=== PATIENT | male | born 1975 | race Caucasian/White ===

== ENCOUNTER 2020-01-22 18:29 | Emergency (ER) | payer BC, SELFPAY ==
--- NOTE | ~2020-01-22 | XR_ITS ---
EXAMINATION: XR ankle LT min 3V, XR foot LT min 3V DATE: 01/22/2020 20:58 INDICATION: Swelling and erythema at the left ankle after being hit with a baseball. TECHNIQUE: 1. Anteroposterior, mortise, additional oblique and lateral view of the left ankle were obtained. 2. Dorsoplantar, two oblique and lateral views of the left foot were obtained. COMPARISON: None. FINDINGS: Alignment of the foot and ankle is normal. No fracture. 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 Large Achilles calca erich spur with a couple additional enthesopathic ossicles at the distal Achilles tendon. Diffuse soft tissue swelling about the ankle and visualized lower leg. Multiple round calcified phleboliths versu s heterotopic ossicles in the subcutaneous tissues predominantly along the anterior distal lower leg. No ankle joint effusion. IMPRESSION: 1. No acute osseous abnormality at the left foot or ankle. Reviewed, dictated and finalized at location A. IMPRESSION: 1. No acute osseous abnormality at the left foot or ankle.
[2020-01-22 19:12] VITALS: BP 132/75; PULSE 74; RESP 74; TEMP 36.7; O2SAT 99
[2020-01-22 22:22] VITALS: BP 126/64; PULSE 71; RESP 20; TEMP 36.7; O2SAT 95
[2020-01-22 23:31] VITALS: BP 139/81; PULSE 65; RESP 17; O2SAT 96
--- NOTE | 2020-01-22 23:31 | PC.NURSE ---
Pt walked out of ED w/ steady gait NAD.
== END 2020-01-22 23:31 | disposition left against medical advice (07) ==
PROVIDERS: Emergency Provider Emergency Medicine; PCP Family Medicine
DX: M79.89 Other specified soft tissue disorders (principal)
CPT/HCPCS: 73610; 73630; 99199

== ENCOUNTER 2020-01-23 06:21 | Emergency (ER) | payer BC, SELFPAY ==
--- NOTE | ~2020-01-23 | US_ITS ---
EXAMINATION: US venous doppler [facility] EXAM DATE: 01/23/2020 07:39 INDICATION: Left leg pain and swelling. TECHNIQUE: Multiple grayscale, color flow and Doppler images of the left lower extremity deep venous system were obtained and reviewed. There is no prior study for comparison. FINDINGS: The left common femoral, femoral and profunda veins demonstrate normal color flow, respirat ory variation, augmentation and compressibility. Compressibility, color flow confirmed within the le ft popliteal, posterior tibial, peroneal, and greater saphenous veins. IMPRESSION: 1. No left lower extremity deep venous thrombosis. Reviewed, dictated and finalized at location A.
[2020-01-23 06:24] VITALS: BP 127/72; PULSE 68; RESP 17; TEMP 36.5; O2SAT 100
--- NOTE | 2020-01-23 07:10 | PC.NURSE ---
ASSUMED CARE FOR PT AT THIS TIME FROM MANUEL BRUNSON.
--- NOTE | 2020-01-23 07:14 | ED.LOWEXIN ---
HPI - Extremity Injury (Lower) General Chief Complaint: Extremity Injury, Lower Stated Complaint: Leg swelling Time Seen by Provider: 01/23/20 07:13 History of Present Illness HPI Narrative: Struck on the left [place] with a softball. Had some pain and swelling at that time. Seemd to be getting better then returned and started getting worse a few days ago. Additionally developed redness. Started on bactrim by PCP. Symptoms continue to get worse. No fever, wound. Related Data Home Medications Medication Instructions Recorded Confirmed sulfamethoxazole-trimethoprim 800 - 1,600 tablet PO DAILY 01/23/20 01/23/20 Allergies Allergy/AdvReac Type Severity Reaction Status Date / Time No Known Allergies Allergy Mild Verified 01/23/20 06:42 Review of Systems Review of Systems: All systems reviewed & are unremarkable except as noted in HPI and below Constitutional: Constitutional: Denies fever(s) ENT: Denies sore throat Cardiovascular: Cardiovascular: Denies chest pain Respiratory: Respiratory: Denies dyspnea Gastrointestinal: Gastrointestinal: Denies abdominal pain and Denies nausea Musculoskeletal: Musculoskeletal: Denies back pain Neurologic: Denies weakness [facility] Past Medical History Medical History Cellulitis Surgical History Surgical History History of weight loss surgery Family History Family History Other Diabetes mellitus Family history of heart disease in male family member before age 55 Social History Social History Alcohol intake: current Exam Const: General: healthy appearing, no acute distress and alert Orientation/consciousness: patient oriented x3 HENMT: Head: normal to inspection Neck: Neck: normal visual inspection and no lymphadenopathy Resp: Effort & Inspection: normal respiratory effort Auscultation: clear to auscultation bilaterally, no rales, no rhonchi and no wheezes Cardio: Jugular venous distension: no JVD Rate: regular rate Rhythm: regular rhythm Heart sounds: no murmurs Other: 2 + DP pulses bilaterally Skin: Other: erythema and induration of the left ankle with large fluctuant area Neuro: General: patient oriented x3, moves all extremities and CN's II-XI intact bilaterally Speech: normal speech Gait exam (Neuro): Normal gait present Extrem: General: no edema Psych: Appearance: well kempt Affect: normal affect Course Vital Signs Vital signs: Vital Signs Temperature 36.5 C 01/23/20 06:24 Pulse Rate 68 01/23/20 06:24 Respiratory Rate 17 01/23/20 06:24 Blood Pressure 127/72 01/23/20 06:24 Pulse Oximetry 100 01/23/20 06:24 Temperature 36.5 C 01/23/20 06:24 Pulse Rate 78 01/23/20 09:16 Respiratory Rate 16 01/23/20 09:16 Blood Pressure 119/72 01/23/20 09:16 Pulse Oximetry 100 01/23/20 09:16 Procedures Abscess I/D lower extremity: Date of Incision: 01/23/20 Side (if applicable): left Local Anesthetic: lidocaine 1% and with epi Amount of anesthesia used (mL): 6 Technique: incised with #11 blade Amount of fluid expressed (mL): 8 Irrigation: Yes Packing used?: iodoform I&D Results: Pus MDM - Extremity Injury (Lower) MDM Narrative Medical decision making narrative: US negative for DVT Significant pus drained on I&D. I will have him finish the course of antibiotics Medical Records Attestation: I reviewed the patient's medical records. Lab Data Attestation: I reviewed the patient's lab results. Result diagrams: 01/23/20 07:04 01/23/20 07:04 Labs: Lab Results 01/23/20 01/23/20 01/23/20 Range/Units 07:04 07:04 07:04 WBC 10.1 H (4.5-10.0) K/mm3 RBC 5.53 (4.6-6.20) M/mm3 Hgb 16.3 (14.0-18
[2020-01-23 07:23] LABS: Basophils Absolute Auto 0.1 K/mm3 (0.0-0.1); Basophils Percent Auto 0.8 % (0.2-1.2); Eosinophils Absolute Auto 0.1 K/mm3 (0-0.3); Eosinophils Percent Auto 1.4 % (0-4.4); Hematocrit 49.2 % (42.0-52.0); Hemoglobin 16.3 g/dL (14.0-18.0); Immature Granulocyte Absolute 0.15 K/mm3 (0.00-0.031); Immature Granulocyte Percent A 1.5 % (0-0.5); Lymphocytes Absolute Auto 0.59 K/mm3 (0.9-3.2); Lymphocytes Percent Auto 5.9 % (18.3-44.2); Mean Corpuscular HGB Conc 33.1 g/dl (32-36); Mean Corpuscular Hemoglobin 29.5 pg (26-34); Mean Platelet Volume 10.5 fl (7.4-10.4); Monocytes Absolute Auto 1.2 K/mm3 (0.1-0.6); Monocytes Percent Auto 11.6 % (2.6-8.5); Neutrophils Absolute Auto 7.9 K/mm3 (1.3-6.7); Neutrophils Percent Auto 78.8 % (45.5-73.1); Platelet Count Result 278 k/mm3 (150-375); Red Blood Count 5.53 M/mm3 (4.6-6.20); Red Cell Distribution Width 13.5 % (11.5-14.5); White Blood Count 10.1 K/mm3 (4.5-10.0)
[2020-01-23 07:32] LABS: INR 1.2; Prothrombin Time 14.4 Seconds (11.1-14.7)
[2020-01-23 07:33] LABS: Partial Thromboplastin Time 29.5 SECONDS (22.3-36.8)
[2020-01-23 07:35] LABS: Alanine Aminotransferase 22 U/L (4-50); Albumin Level 4.2 g/dL (3.5-5.1); Alkaline Phosphatase 45 U/L (38-126); Anion Gap 9 mmol/L (8-16); Aspartate Amino Transferase 23 U/L (17-59); Bilirubin,Total 0.7 mg/dL (0.2-1.3); Blood Urea Nitrogen 15 mg/dL (9-20); Calcium 9.2 mg/dL (8.4-10.2); Carbon Dioxide 29 mmol/L (22-30); Chloride 99 mmol/L (98-107); Estimated Glomerular Filt Rate > 60; Glucose 96 mg/dL (75-110); Potassium 4.4 mmol/L (3.4-5.0); Sodium 137 mmol/L (137-145)
[2020-01-23 08:31] VITALS: BP 118/68; PULSE 72; RESP 16; O2SAT 100
--- NOTE | 2020-01-23 08:31 | PC.NURSE ---
AURELIO DAVIS INFORMED THAT HE IS SET UP FOR AN I&D AT THE BEDSIDE.
[2020-01-23 09:16] VITALS: BP 119/72; PULSE 78; RESP 16; O2SAT 100
== END 2020-01-23 09:17 | disposition home or self-care (01) ==
PROVIDERS: Emergency Medicine; Emergency Provider Emergency Medicine; PCP Family Medicine
DX: L03.116 Cellulitis of left lower limb (principal); L02.416 Cutaneous abscess of left lower limb
CPT/HCPCS: 10060; 36415; 80053; 85025; 85610; 85730; 93971; 99284